=== PATIENT | male | born 1975 | race Two or more races ===

== ENCOUNTER 2024-05-16 09:05 | Day surgery (SDC) | payer MEDICAID, SELFPAY ==
--- NOTE | 2024-05-12 08:16 | EKG_ITS ---
[facility] Test Date: 2024-05-12 Pat Name: VIKY PATEL Department: Room: - Gender: Male [employer] Operator: RORY : 1975 Requested By: Martín Romeo Order Number: [id number] Reading MD: Martín Romeo Measurements Intervals [place] Rate: 57 P: 41 MS: 120 QRS: 28 QRSD: 88 T: 32 QT: 388 QTc: 379 Interpretive Statements SINUS BRADYCARDIA No previous ECG available for comparison /[id number]/[email or web address]/[id number]
[2024-05-12 08:41] VITALS: BMI 30.9
[2024-05-12 09:31] LABS: Collection Type, Urine Clean Catch; Squamous Epithelial Cell,Urine 0 /hpf (0-5)
[2024-05-12 09:43] LABS: Basophils % (Auto) 0 % (0-2.5); Eosinophils # (Auto) 0.1 Thou/mm3 (0.0-0.5); Eosinophils % (Auto) 3 % (0-10); Hematocrit 45.3 % (41.0-53.0); Hemoglobin 15.8 g/dL (13.5-16.0); Immature Granulocytes % (Auto) 0 % (0-0); Immature Granulocytes Auto 0.01 Thou/mm3 (0.00-0.00); Lymphocytes # (Auto) 1.8 Thou/mm3 (1.0-4.8); Lymphocytes % (Auto) 38 % (10-50); Mean Corpuscular HGB Conc 34.9 g/dl (31.0-37.0); Mean Corpuscular Hemoglobin 29.5 pg (25.0-35.0); Mean Corpuscular Volume 85 fL (80-100); Monocytes # (Auto) 0.4 Thou/mm3 (0.0-0.8); Monocytes % (Auto) 8 % (0-12); Neutrophils # (Auto) 2.4 Thou/mm3 (1.8-7.7); Neutrophils % (Auto) 50 % (37-80); Nucleated Red Blood Cell % 0 /100 WBC (0); Platelet Count 223 Thou/mm3 (140-440); RDW Standard Deviation 38.7 fL (35.1-43.9); Red Blood Count 5.36 Miln/mm3 (4.50-5.90); White Blood Count 4.7 Thou/mm3 (3.8-10.6)
[2024-05-12 09:48] LABS: Partial Thromboplastin Time 27.1 Seconds (22.0-36.0)
[2024-05-12 10:01] LABS: Alanine Aminotransferase 43 U/L (10-49); Albumin, Serum 4.5 gm/dL (3.5-5.0); Albumin/Globulin Ratio 1.6 (1.2-2.2); Alkaline Phosphatase 93 U/L (46-116); Anion Gap 8 (7-16); Aspartate Amino Transferase 24 U/L (0-34); BUN/Creatinine Ratio 14 Ratio (12-20); Bilirubin,Total 0.6 mg/dL (0.3-1.2); Blood Urea Nitrogen 13 mg/dL (9-23); Calcium 9.3 mg/dL (8.3-10.6); Calcium (Corrected) 9.3 mg/dL (8.5-10.1); Carbon Dioxide 26.3 mMol/L (20.0-31.0); Chloride 108 mMol/L (98-107); Creatinine (Component) 0.9 mg/dL (0.6-1.3); Estimated Creatinine Clearance 114.2 mL/min (>60); Globulin 2.8 gm/dL (2.3-3.5); Glucose 101 mg/dL (74-106); Osmolality,Calculated 283 (275-295); Potassium 4.3 mMol/L (3.4-5.1); Sodium 142 mMol/L (136-145); Total Protein 7.3 gm/dL (5.7-8.2); eGFR > 60 See Note
[2024-05-12 10:07] LABS: Bilirubin,Urine Negative (Negative); Blood,Urine Negative (Negative); Clarity,Urine Clear (Clear/Hazy); Color,Urine Lt-Yellow (Lt Yel-Yel); Glucose, Urine Negative (Negative); Ketones,Urine Negative (Negative); Leukocyte Esterase,Urine Negative (Negative); Nitrite,Urine Negative (Negative); Protein,Urine Negative (Neg - Trace); RBC,Urine 4 /hpf (0-3); Specific Gravity,Urine 1.027 (1.001-1.035); Urobilinogen,Urine Negative mg/dL (0.0-1.0); WBC,Urine < 1 /hpf (0-5)
[2024-05-16] VITALS (7 sets, daily range): BP systolic 129–143; BP diastolic 81–98; PULSE 60–94; RESP 12–19; TEMP 36.3–36.5; O2SAT 95–99; BMI 30.4
--- NOTE | 2024-05-16 09:59 | SUR.PREOP ---
Patient expressed gratitude for prayer before heir procedure.
--- NOTE | 2024-05-16 12:31 | SUR.PHASEI ---
pt arrived to PACU via gurney drowsy but arouses to voice, breathing unlabored, dressing to lower back clean, dry, and intact, report from Bre MCFADDEN, David MCFADDEN, and Dr Amor.
--- NOTE | 2024-05-16 12:42 | SUR.PHASEI ---
report to Carole MCFADDEN
--- NOTE | 2024-05-16 12:47 | ESOP_ITS ---
Date of Procedure 05/16/24 Pre Op Diagnosis Large lipoma right mid back Post Op Diagnosis Large intramuscular lipoma right mid back in the latissimus dorsi muscle. Procedure Excision of large intramuscular lipoma right back latissimus dorsi muscle. May 16, 2024 Findings There was a symptomatic lipoma in the right mid back in the latissimus dorsi muscle this measured about 12 cm in maximum diameter. There was no infection. Procedure Description Patient was interviewed in the preop area and examined. The site and site was determined. This was marked on the surface. Risk benefits and alternatives were discussed with the patient and informed consent is obtained. Patient was then taken to the operating room and positioned in the left side lateral position with a beanbag general anesthesia was administered. IV antibiotic was given to the patient. The mass was identified and local anesthesia 0.5% Marcaine with epinephrine is used for wide field block. Curvilinear transverse incision is made over the mass and deepened through the layers of skin and subcutaneous tissue and the lipoma is identified through the muscle. The l atissimus dorsi muscle was incised and the fibers were . The lipoma was then gently dissected and removed. Hemostasis is achieved. The muscle fascia was approximated by 3-0 Vicryl continuous suture. Subcutaneous tissues were reapproximated by 2-0 Vicryl and skin was approximated by 4-0 Monocryl subcuticular stitches and Steri-Strips were applied. Patient tolerated the procedure very well. Anesthesia GETA Drains None. Implants None. Pathology / specimen Other (Intramuscular lipoma right mid back) Estimated Blood Loss 5 Condition Stable Disposition PACU Surgeon Martín Romeo MD Surgical Staff Operation Date: 05/16/24 11:45 Case Staff Anesthesiologist: Mukul Amor RNcoordinate measuring machine programmer: Ashia Ferreira
--- NOTE | 2024-05-16 13:15 | SUR.PHASEII ---
Pt. meets criteria for discharge, VSS, no c/o pain or nausea at this time, dressing to right side back, CDI, discharge instructions provided to pt. and pt.'s with use of auto finance sales rep services. IV discontinued without complications, pt. escorted to vehicle via w/c with all of belongings by staff.
== END 2024-05-16 13:15 | disposition home or self-care (01) ==
PROVIDERS: PCP Family Medicine; Referring Provider Specialist; Visit Provider Specialist
PROC: (CPT 21931; principal; 2024-05-16 11:30)
DX: D17.1 Benign lipomatous neoplasm of skin and subcutaneous tissue of trunk (principal); Z01.810 Encounter for preprocedural cardiovascular examination
CPT/HCPCS: 21931; 36415; 80053; 81001; 85025; 85610; 85730; 93005; A4217; A4649; J0690; J1100; J2704; J2765; J3010; J3490